=== PATIENT | female | born 1980 | race Caucasian/White ===

== ENCOUNTER 2018-04-26 09:21 | Inpatient (IN) | payer OTHER ==
[2018-04-26] MEDS ORDERED: LIDOCAINE 1% (MPF) 30 ML INJ INJ (10:00)
[2018-04-26] MEDS ORDERED: METHYLERGONOVINE 0.2 MG INJ IM ×2 (10:00→17:30)
[2018-04-26] MEDS ORDERED: MISOPROSTOL 200 MCG TAB PR ×2 (10:00→17:30)
[2018-04-26] MEDS ORDERED: CARBOPROST 250 MCG INJ IM ×2 (10:00→17:30)
[2018-04-26] MEDS ORDERED: OXYTOCIN 30 UNITS/LR 500 ML IV ×2 (10:00→17:30)
[2018-04-26] MEDS ORDERED: BUTORPHANOL 2 MG INJ IV (10:00)
[2018-04-26 10:08] LABS: ADD MAN DIFF? NO
[2018-04-26 10:15] LABS: BASOPHILS % 0.3 % (0.0-2.0); EOSINOPHILS # 0.1 10^3/ul (0.0-0.5); EOSINOPHILS % 1.1 % (0.0-7.0); HEMATOCRIT 34.5 % (37.0-47.0); HEMOGLOBIN 11.9 g/dl (12.0-16.0); LYMPHOCYTES # 1.7 10^3/ul (0.8-2.9); LYMPHOCYTES % 17.8 % (15.0-51.0); MEAN CORPUSCULAR HEMOGLOBIN 33.4 pg (29.0-33.0); MEAN CORPUSCULAR HGB CONC 34.5 g/dl (32.0-37.0); MEAN CORPUSCULAR VOLUME 96.9 fl (82.0-101.0); MEAN PLATELET VOLUME 11.4 fl (7.4-10.4); MONOCYTE # 0.7 10^3/ul (0.3-0.9); MONOCYTES % 7.1 % (0.0-11.0); NEUTROPHIL # 6.9 10^3/ul (1.6-7.5); NEUTROPHILS % 73.2 % (39.0-77.0); PLATELET COUNT 222 10^3/UL (140-415); RED BLOOD COUNT 3.56 10^6/ul (4.20-5.40); RED CELL DISTRIBUTION WIDTH 13.1 % (11.5-14.5)
[2018-04-26 10:15] LABS: WHITE BLOOD COUNT 9.4 10^3/ul (4.8-10.8)
[2018-04-26] MEDS ORDERED: AMPICILLIN 2 GM/NS (PMX) 100 ML (10:17)
[2018-04-26] MEDS: LACTATED RINGER'S 1,000 ML IV ×2 (10:26→11:31)
[2018-04-26 10:27] LABS: ADD UMIC YES; UR ASCORBIC ACID NEGATIVE (NEGATIVE); UR BACTERIA FEW /HPF (NONE SEEN); UR BILIRUBIN (Dip) NEGATIVE (NEGATIVE); UR BLOOD (Dip) 3+ mg/dL (NEGATIVE); UR BUDDING YEAST FEW /HPF (NONE SEEN); UR CLARITY CLOUDY (CLEAR); UR COLOR RED (YELLOW); UR GLUCOSE (Dip) NEGATIVE (NEGATIVE); UR KETONES (Dip) NEGATIVE (NEGATIVE); UR LEUKOCYTE ESTERASE (Dip) TRACE Leu/ul (NEGATIVE); UR MUCUS FEW /HPF (NONE SEEN); UR NITRITE (Dip) NEGATIVE (NEGATIVE); UR RBC > 182 /HPF (0-5); UR SPECIFIC GRAVITY (Dip) 1.011 (1.003-1.030); UR SQUAMOUS EPITHELIAL CELL MODERATE /HPF (FEW); UR TOTAL PROTEIN (Dip) 2+ mg/dl (NEGATIVE); UR UROBILINOGEN (Dip) NEGATIVE (NEGATIVE); UR WBC 76 /HPF (0-5)
[2018-04-26] MEDS: AMPICILLIN 2 GM/NS (PMX) 100 ML IV (10:27)
[2018-04-26 10:34] LABS: INR 0.78; PROTIME 10.9 Sec (11.9-14.9); PT RATIO 0.9
[2018-04-26 10:35] LABS: PARTIAL THROMBOPLASTIN TIME 27.4 Sec (23.0-35.0)
[2018-04-26 10:42] LABS: ALANINE AMINOTRANSFERASE 21 IU/L (13-69); ALBUMIN 3.8 g/dl (3.3-4.9); ALKALINE PHOSPHATASE 54 IU/L (42-121); ANION GAP 9 (5-13); ASPARTATE AMINO TRANSFERASE 21 IU/L (15-46); BILIRUBIN,INDIRECT 0.2 mg/dl (0-1.1); BILIRUBIN,TOTAL 0.2 mg/dl (0.2-1.3); BLOOD UREA NITROGEN 13 mg/dl (7-20); CALCIUM 9.9 mg/dl (8.4-10.2); CARBON DIOXIDE 23 mmol/L (21-31); CHLORIDE 104 mmol/L (97-110); CREATININE 0.58 mg/dl (0.44-1.00); Estimated GFR > 60 mL/min (>60); GLUCOSE 88 mg/dl (70-220); POTASSIUM 3.9 mmol/L (3.5-5.1); SODIUM 136 mmol/L (135-144); TOTAL PROTEIN 6.5 g/dl (6.1-8.1); URIC ACID 4.2 mg/dl (3.1-7.9)
[2018-04-26 11:12] LABS: HEPATITIS B SURFACE ANTIGEN NEGATIVE (NEGATIVE)
[2018-04-26] MEDS ORDERED: LIDOCAINE 1% (MPF) 30 ML INJ (11:58)
[2018-04-26] MEDS: OXYTOCIN 30 UNITS/LR 500 ML IV ×3 (12:52→17:23)
[2018-04-26] MEDS ORDERED: AMPICILLIN 1 GM/NS (PMX) 50 ML IV (14:00)
[2018-04-26 15:27] LABS: RAPID PLASMA REAGIN NONREACTIVE (NR)
[2018-04-26] MEDS: IBUPROFEN 600 MG TAB PO (15:45)
[2018-04-26] MEDS ORDERED: DIPHENHYDRAMINE 25 MG CAP PO (17:30)
[2018-04-26] MEDS ORDERED: ACETAMINOPHEN 325 MG TAB PO (17:30)
[2018-04-26] MEDS ORDERED: MAGNESIUM HYDROXIDE 30ML CUP PO (17:30)
[2018-04-26] MEDS ORDERED: HYDROCODONE/APAP (5/325) TAB PO (17:30)
[2018-04-26] MEDS ORDERED: ZOLPIDEM 5 MG TAB PO (17:30)
[2018-04-26] MEDS: IBUPROFEN 800 MG TAB PO ×2 (18:00→23:49)
[2018-04-26] MEDS: LANOLIN 7 GM TUBE TOP (18:37)
[2018-04-26] MEDS: WITCH HAZEL/GLYCERIN PAD PR (18:37)
[2018-04-26] MEDS: BENZOCAINE 20% 56 ML SPRAY TOP (18:37)
[2018-04-26] MEDS: LACTATED RINGER'S 1,000 ML IV* (18:38)
[2018-04-27] MEDS: IBUPROFEN 800 MG TAB PO ×3 (05:43→17:58)
[2018-04-27 08:37] LABS: ADD MAN DIFF? NO
[2018-04-27 08:55] LABS: BASOPHILS % 0.3 % (0.0-2.0); EOSINOPHILS # 0.1 10^3/ul (0.0-0.5); EOSINOPHILS % 0.7 % (0.0-7.0); LYMPHOCYTES # 1.9 10^3/ul (0.8-2.9); LYMPHOCYTES % 15.4 % (15.0-51.0); MEAN CORPUSCULAR HEMOGLOBIN 33.7 pg (29.0-33.0); MEAN CORPUSCULAR HGB CONC 34.5 g/dl (32.0-37.0); MEAN CORPUSCULAR VOLUME 97.6 fl (82.0-101.0); MEAN PLATELET VOLUME 11.4 fl (7.4-10.4); MONOCYTE # 0.8 10^3/ul (0.3-0.9); MONOCYTES % 6.6 % (0.0-11.0); NEUTROPHIL # 9.6 10^3/ul (1.6-7.5); NEUTROPHILS % 76.5 % (39.0-77.0); PLATELET COUNT 179 10^3/UL (140-415); RED BLOOD COUNT 2.97 10^6/ul (4.20-5.40); RED CELL DISTRIBUTION WIDTH 13.2 % (11.5-14.5)
[2018-04-27 08:55] LABS: WHITE BLOOD COUNT 12.5 10^3/ul (4.8-10.8)
[2018-04-28] MEDS: IBUPROFEN 800 MG TAB PO ×3 (00:20→11:43)
[2018-04-28] MEDS: VARICELLA VACCINE LIVE/PF 1,350 UNIT/0.5 ML ML SC* (09:57)
[2018-04-28] MEDS: DIPHTH/TET/ACEL PERTUSS (ADULT) 0.5 ML VIAL IM* (09:57)
[2018-04-28] MEDS: MEASLES,MUMPS,RUBELLA VACCINE INJ SC* (09:57)
[2018-04-28 11:46] LABS: RUBELLA ANTIBODY - IGM <20.00 AU/mL
[2018-04-28] MEDS: SENNA/DOCUSATE NA (8.6MG/50MG) TAB PO (13:37)
== END 2018-04-28 18:15 | disposition home or self-care (01) | DRG 807 ==
LOC: OBT 09:21 → L-D 09:23 → OBT 09:45 → L-D 09:45 → PP1 17:25
PROC: 10E0XZZ Delivery of Products of Conception, External Approach (ICD-10-PCS; principal; 2018-04-26)
DX: O80 Encounter for full-term uncomplicated delivery (principal); Z37.0 Single live birth; Z3A.37 37 weeks gestation of pregnancy
CPT/HCPCS: 76816; 76818; 80053; 81001; 84560; 85025; 85384; 85610; 85730; 86592; 86762; 86850; 86900; 86901; 87340; 90716